=== PATIENT | female | born 1960 | race Caucasian/White ===

== ENCOUNTER → 2023-10-03 13:30 | Outpatient (REF) | payer MEDICARE, OTHER, SELFPAY | LOC: WDC 13:30 | PROVIDERS: ATTENDING PHYSICIAN Internal Medicine | DX: Z12.31 Encounter for screening mammogram for malignant neoplasm of breast (principal) | CPT/HCPCS: 77063; 77067 ==

== ENCOUNTER → 2024-01-15 10:48 | Outpatient (REF) | payer MEDICARE, OTHER, SELFPAY | LOC: RCS 10:48 | PROVIDERS: ATTENDING PHYSICIAN Internal Medicine; FAMILY PHYSICIAN Internal Medicine | DX: R00.2 Palpitations (principal) | CPT/HCPCS: 93225; 93226 ==

== ENCOUNTER → 2024-05-25 20:09 | Outpatient (REF) | payer MEDICARE, OTHER, SELFPAY | LOC: MRI 20:09 | PROVIDERS: ATTENDING PHYSICIAN Student in an Organized Health Care Education/Training Program; FAMILY PHYSICIAN Internal Medicine | DX: M79.662 Pain in left lower leg (principal) | CPT/HCPCS: 73718 ==

== ENCOUNTER → 2024-06-04 06:20 | Day surgery (SDC) | payer MEDICARE, OTHER, SELFPAY | LOC: GI 06:20 | PROVIDERS: ATTENDING PHYSICIAN Specialist | DX: Z12.11 Encounter for screening for malignant neoplasm of colon (principal); D12.3 Benign neoplasm of transverse colon; K56.2 Volvulus; D12.8 Benign neoplasm of rectum; K62.1 Rectal polyp; K64.8 Other hemorrhoids; Z86.0101 Personal history of adenomatous and serrated colon polyps; Z80.0 Family history of malignant neoplasm of digestive organs | CPT/HCPCS: 45385; 45380; 88305 ==

== ENCOUNTER → 2024-06-10 16:35 | Outpatient (REF) | payer MEDICARE, OTHER, SELFPAY | LOC: RAD 16:35 | PROVIDERS: ATTENDING PHYSICIAN Internal Medicine; FAMILY PHYSICIAN Internal Medicine | DX: F17.210 Nicotine dependence, cigarettes, uncomplicated (principal) | CPT/HCPCS: 71271 ==

== ENCOUNTER → 2024-07-27 14:59 | Outpatient (REF) | payer MEDICARE, OTHER, SELFPAY | LOC: RAD 14:59 | PROVIDERS: ATTENDING PHYSICIAN Internal Medicine | DX: Z72.0 Tobacco use (principal); R05.3 Chronic cough | CPT/HCPCS: 71046 ==

== ENCOUNTER → 2024-07-28 05:57 | Emergency (ER) | payer MEDICARE, OTHER, SELFPAY ==
[2024-07-28 06:01] VITALS: BP 105/62
--- NOTE | 2024-07-28 07:31 | ED.GENMED ---
History of Present Illness
General
Chief Complaint: Cough
Time Seen by Provider: 07/28/24 07:31
History of Present Illness
History of Present Illness:
TIME OF INITIAL ENCOUNTER: 7:35 AM
HPI: The patient has been having a rather significant cough over the past 1 to 2 months. She had a period of improvement but then it worsened a couple of weeks ago. She does have a concern for nonsustained ventricular tachycardia�her enamel dipper
tried Xopenex which she tolerated in the office however she could not find Xopenex anywhere in the pharmacies. She is not currently taking any steroids orally or inhaled. She does not take any RONAL inhibitors. She reports no lower extremity edema.
EXAM:
GENERAL: Well appearing in no distress, occasional wet sounding cough.
HEENT: Moist oral mucosa
CARDIOVASCULAR: No chest wall tenderness
PULMONARY: No respiratory distress, breath sounds are equally diminished
ABDOMEN: Soft with no peritoneal signs, no tenderness
NEUROLOGIC: Excellent strength all extremities, no coordination deficits
PSYCHIATRIC: Appropriate mental status, normal insight and judgement
EXTREMITIES: Nontender, no edema, moves all extremities equally
SKIN: No rash, no lesions
NUMBER AND COMPLEXITY OF PROBLEMS ADDRESSED AT THE ENCOUNTER
� Chronic conditions affecting care: Chronic bronchitis, smoker, SVT
� Acute Exacerbation and/or Progression of Chronic Illness: This is a subacute problem
� Differential Diagnosis includes: Exacerbation of chronic bronchitis, viral syndrome, pneumonia
AMOUNT AND/OR COMPLEXITY OF DATA TO BE REVIEWED AND ANALYZED
� I performed an independent evaluation of and my interpretation is:
EKG:
CT:
X-rays:
Laboratory Studies:
Other:
� Review of other/old records: I reviewed the chest x-ray from yesterday which was negative
� Clinical information was obtained by an independent historian: I spoke to family member at bedside
� Prescriptions/Medications Considered but not given: Considered albuterol however the patient has history of VT and was elected to try albuterol
� Further testing considered but not performed: Did not repeat chest x-ray as she just had 1 yesterday
RISK OF COMPLICATIONS AND/OR MORBIDITY OR MORTALITY OF PATIENT MANAGEMENT
� Social determinants of health affecting care: Lives at home
� Discussion with other providers:
� Escalation of care including admission/observation vs risk of discharge considered: Will start fluticasone as inhaled steroid. Suspect viral syndrome/exacerbation of chronic bronchitis.
ANY OTHER UPDATES:
Past History
Past History
ED Past Medical History: Other (Nonsustained VT, tubal ligation, discectomy and laminectomy)
ED Past Surgical History: Gynecological and Orthopedic
Social History
Tobacco: Smoker
Alcohol: None
Drug: None
Personal:
Living: with family
Employment: Employed
Family History
Family History: CAD
Phy Exam
Physical Exam
Physical Exam:
See HPI
Course
Vital Signs
Initial and Last Documented VS:
Initial Vital Signs
Temp Pulse Resp BP Pulse Ox
37.0 C 94 22 105/62 96
07/28/24 06:01 07/28/24 06:01 07/28/24 06:01 07/28/24 06:01 07/28/24 06:01
Last Documented Vital Signs
Temp Pulse Resp BP Pulse Ox
37.0 C 94 22 105/62 96
07/28/24 06:01 07/28/24 06:01 07/28/24 06:01 07/28/24 06:01 07/28/24 06:01
*Critical Care Note
Total Time (30-74mins, 75-104mins- exclusive of procedures): Not Applicable
ED Attending Note
-
Portions of this chart may have been created with voice recognition software.� Occasional wrong word or��sound alike� substitutions may have occurred due to the inherent limitations of voice recognition software.
Discharge Plan
Departure
Patient Disposition: Home (Routine Discharge)
Date of Disposition: 07/28/24
Time of Disposition: 07:50
Patient with high blood pressure during this ER visit?: Yes
Discharge Problem:
Bronchitis
Instructions: Acute Bronchitis, Adult (DC), Cough, Adult (DC)
Prescriptions:
New
Arnuity Ellipta 100 mcg/actuation blister with device
1 inh inhalation DAILY Qty: 30 0RF
No Action
metoprolol succinate 25 MG tablet extended release 24 hr
25 mg PO HS
loratadine 10 MG tablet
10 mg PO DAILY
ondansetron HCl [Zofran] 8 MG tablet
8 mg PO R TIDPRN PRN (Reason: nausea) Qty: 10 0RF
Referrals:
Jin Marin MD [Family Provider] -
Activity Restrictions/Additional Instructions:
I sent a prescription for an inhaled steroid to the [facility] pharmacy at [address] in [place]. Consider speaking to Dr. Mccoy about switching from a beta-salome to something different like a calcium channel salome because of your breathing issues.
Follow-up with the enamel dipper as well. Return here if worse or other concerns. I reviewed the chest x-ray report from yesterday and it was negative for pneumonia.
Interventions
Interventions:
*Risk Screen - Suicide Last Done: 07/28/24 06:01
*Neglect/Abuse Screening Last Done: 07/28/24 06:01
Discharge Date and Time
Print Language: WELSH
== END | disposition home or self-care (01) ==
LOC: EMR 05:57
PROVIDERS: EMERGENCY PHYSICIAN Emergency Medicine; FAMILY PHYSICIAN Internal Medicine
DX: J20.9 Acute bronchitis, unspecified (principal); I47.10 Supraventricular tachycardia, unspecified; R03.0 Elevated blood-pressure reading, without diagnosis of hypertension; F17.200 Nicotine dependence, unspecified, uncomplicated; Z91.012 Allergy to eggs; Z91.040 Latex allergy status; Z88.5 Allergy status to narcotic agent; Z91.018 Allergy to other foods; Z91.013 Allergy to seafood; Z88.8 Allergy status to other drugs, medicaments and biological substances
CPT/HCPCS: 99283

== ENCOUNTER → 2024-10-06 12:47 | Outpatient (REF) | payer MEDICARE, OTHER, SELFPAY | LOC: WDC 12:47 | PROVIDERS: ATTENDING PHYSICIAN Obstetrics & Gynecology Gynecology; FAMILY PHYSICIAN Internal Medicine | DX: Z12.31 Encounter for screening mammogram for malignant neoplasm of breast (principal) | CPT/HCPCS: 77063; 77067 ==

== ENCOUNTER → 2024-10-15 15:07 | Outpatient (REF) | payer MEDICARE, OTHER, SELFPAY | LOC: RAD 15:07 | PROVIDERS: ATTENDING PHYSICIAN Internal Medicine | DX: M79.652 Pain in left thigh (principal) | CPT/HCPCS: 73552 ==

== ENCOUNTER → 2025-02-04 14:58 | Outpatient (REF) | payer MEDICARE, OTHER, SELFPAY | LOC: PAVMRI 14:58 | PROVIDERS: ATTENDING PHYSICIAN Student in an Organized Health Care Education/Training Program; FAMILY PHYSICIAN Internal Medicine | DX: M79.671 Pain in right foot (principal) | CPT/HCPCS: 73718 ==

== ENCOUNTER → 2025-03-04 07:21 | Outpatient (REF) | payer MEDICARE, OTHER, SELFPAY | LOC: RCS 07:21 | PROVIDERS: ATTENDING PHYSICIAN Internal Medicine; FAMILY PHYSICIAN Internal Medicine | DX: I47.19 Other supraventricular tachycardia (principal); R42 Dizziness and giddiness; I49.1 Atrial premature depolarization; I95.1 Orthostatic hypotension | CPT/HCPCS: 93306; 93356 ==

== ENCOUNTER → 2025-04-08 14:12 | Outpatient (REF) | payer MEDICARE, OTHER, SELFPAY | LOC: RAD 14:12 | PROVIDERS: ATTENDING PHYSICIAN Psychiatry & Neurology Neurology; FAMILY PHYSICIAN Internal Medicine; REFERRING PHYSICIAN Internal Medicine | DX: F17.200 Nicotine dependence, unspecified, uncomplicated (principal) | CPT/HCPCS: 71046 ==

== ENCOUNTER → 2025-06-16 14:39 | Outpatient (REF) | payer MEDICARE, OTHER, SELFPAY | LOC: HWRAD 14:39 | PROVIDERS: ATTENDING PHYSICIAN Internal Medicine; FAMILY PHYSICIAN Internal Medicine | DX: Z87.891 Personal history of nicotine dependence (principal); Z72.0 Tobacco use | CPT/HCPCS: 71271 ==

== ENCOUNTER 2025-07-17 12:31 | Emergency (ER) | payer MEDICARE, OTHER, SELFPAY ==
[2025-07-17 12:35] VITALS: BP 106/74
--- NOTE | 2025-07-17 19:03 | ED.GENMED ---
History of Present Illness
General
Chief Complaint: Musculo-Skeletal Complaint
Source: patient
Exam Limitations: none
Time Seen by Provider: 07/17/25 14:58
Nursing documentation reviewed up to this point in time: agreed with
History of Present Illness
History of Present Illness:
Patient to the emergency department for evaluation of left-sided neck pain. She states she noticed pain approximately 3 days ago. She reports that she has been lifting at the gym and is unsure if she injured her neck or there. Today she woke up
and noticed discoloration to the right side of her neck. Brought to the emergency department by her spouse for evaluation. She denies any fever or chills, recent illness. There is no numbness or tingling to her extremities. There is no weakness
in her extremities. She has no headache or dizziness. No prior history of same.
Past History
Past History
ED Past Medical History: Other (Nonsustained VT, tubal ligation, discectomy and laminectomy)
ED Past Surgical History: Gynecological and Orthopedic
Social History
Tobacco: Smoker
Alcohol: None
Drug: None
Personal:
Living: with family
Employment: Employed
Family History
Family History: CAD
Review of Systems
Review of Systems
Allergies reviewed?: Yes
All Other Systems: ROS reviewed and negative except as documented in HPI and ROS
Constitutional: Reports no symptoms
EENT: Reports no symptoms
Respiratory: Reports no symptoms
Cardiac: Reports no symptoms
ABD/GI: Reports no symptoms
Musculoskeletal: Reports neck pain (Left lateral neck pain)
Skin: Reports other (Discoloration to left side of neck)
Neurological: Reports no symptoms
Psychiatric: Reports no symptoms
Phy Exam
General Physical Exam
General Presentation: well appearing and mild distress
General age: appears stated age
General Skin: warm and dry
General Habitus: normal
General Mental: alert
ENT Exam
ENT Exam: normocephalic and swallowing well
Eye Exam
Eye Exam: PERRL, EOMI and conjunctiva normal
Neurological Exam
Neurological Exam: alert, oriented x3, CN II-XII intact and no motor deficits
Musculoskeletal Exam
Musculoskeletal Exam: neuro vasc intact and other (Pain to touch and movement left lateral neck. Vesicular rash noted to site)
Skin Exam
Skin Exam: warm/dry and other (Vesicular rash noted to 2 small areas on left side of neck concerning for shingles)
Psychiatric Exam
Psychiatric Exam: normal mood/affect
Course
Orders/Labs/Results
Orders:
Orders
07/17/25 12:40
EKG [Electrocardiogram (*1)] Urgent
Reason for Study: Chest Pain
EKG- Treatment ONCE
Vital Signs
Initial and Last Documented VS:
Initial Vital Signs
Temp Pulse Resp BP Pulse Ox
97.5 F 75 20 106/74 100
07/17/25 12:35 07/17/25 12:35 07/17/25 12:35 07/17/25 12:35 07/17/25 12:35
Last Documented Vital Signs
Temp Pulse Resp BP Pulse Ox
97.5 F 75 20 106/74 100
07/17/25 12:35 07/17/25 12:35 07/17/25 12:35 07/17/25 12:35 07/17/25 12:35
*Radiology
Radiology exam reviewed: radiology read reviewed
*Pulse Oximetry
SaO2: 100
Oxygen Mode of Delivery: Room air
Patient hypoxic: no
*Critical Care Note
Total Time (30-74mins, 75-104mins- exclusive of procedures): Not Applicable
Update Note
Update Note:
Patient to the emergency department with complaint of left lateral neck pain. She states her symptoms started approximately 3 days ago. Today she noticed discoloration to the left side of her neck. On exam she has a vesicular rash which is
concerning for shingles. She has pain to touch and movement to the left side of her neck. Vital signs are stable and she remains afebrile. No headache or dizziness, no blurred vision. No meningeal signs or symptoms. She has no weakness in her
extremities. She has equal strength and sensation bilaterally. She remains awake alert and oriented in no visible distress. Discussed concerns with her. Recommend valacyclovir 1 g 3 times daily however patient is not sure that she wants to take
any medications for this. Risks benefits discussed with her. She has agreed to take the prescription with her and will think about it overnight. If she decides to proceed with medication she will fill prescription in AM. Either way she is
encouraged to follow-up with her family doctor in the a.m. and she has agreed to this plan.
ED Attending Note
-
Portions of this chart may have been created with voice recognition software.� Occasional wrong word or��sound alike� substitutions may have occurred due to the inherent limitations of voice recognition software.
Discharge Plan
Departure
Patient Disposition: Home (Routine Discharge)
Date of Disposition: 07/17/25
Time of Disposition: 15:20
Patient with high blood pressure during this ER visit?: No
Condition: Good
Covid-19: Not Applicable
Discharge Problem:
Shingles
Instructions: Ibuprofen, Shingles
Prescriptions:
New
valacyclovir 1 gram tablet
1,000 mg PO TID Qty: 7 0RF
No Action
metoprolol succinate 25 MG tablet extended release 24 hr
25 mg PO HS
loratadine 10 MG tablet
10 mg PO DAILY
ondansetron HCl [Zofran] 8 MG tablet
8 mg PO R TIDPRN PRN (Reason: nausea) Qty: 10 0RF
Arnuity Ellipta 100 mcg/actuation blister with device
1 inh inhalation DAILY Qty: 30 0RF
prednisone 50 mg tablet
50 mg PO DAILY Qty: 5 0RF
Referrals:
UNKNOWN - PT DOES,NOT KNOW [Unknown Provider]
Activity Restrictions/Additional Instructions:
Follow-up with your family doctor. Return to the emergency department for any changes in/worsening of your symptoms, especially fever/chills, worsening headache, photophobia, confusion/lethargy, facial involvement of skin rash, or for any further
concerns.
Interventions
Interventions:
*General Assessment Last Done: 07/17/25 12:35
*Neglect/Abuse Screening Last Done: 07/17/25 12:35
*Risk Screen - Suicide (C-SSRS) Last Done: 07/17/25 12:35
*Nursing Disposition Last Done: 07/17/25 15:34
ED-Musculoskeletal Assessment Last Done: 07/17/25 15:33
Discharge Date and Time
Discharge Date/Time: 07/17/25 15:34
Print Language: GREEK
== END 2025-07-17 15:34 | disposition home or self-care (01) ==
LOC: EMR 12:31
PROVIDERS: EMERGENCY PHYSICIAN Emergency Medicine; FAMILY PHYSICIAN Internal Medicine
DX: B02.9 Zoster without complications (principal); F17.200 Nicotine dependence, unspecified, uncomplicated
CPT/HCPCS: 99283; 93005